=== PATIENT | female | born 1990 | race Caucasian/White ===

== ENCOUNTER 2023-08-11 07:29 | Emergency (ER) | payer OTHER ==
[~2023-08-11] VITALS: Ht 167.6 cm; Wt 56.7 kg
[2023-08-11 07:44] VITALS: BP 142/94; PULSE 75; RESP 16; O2SAT 99
[2023-08-11 08:09] VITALS: TEMP 98.6
[2023-08-11] MEDS ORDERED: ACETAMINOPHEN 325MG TABLET PO STA (08:09)
[2023-08-11] MEDS ORDERED: ONDANSETRON HCL 4MG TABLET PO ONE (08:15)
[2023-08-11 10:08] LABS: CLARITY URINE CLOUDY (CLEAR); COLOR URINE ORANGE (YELLOW); GLUCOSE URINE NEGATIVE (NEGATIVE); KETONES URINE 1+ (NEGATIVE); LEUKOCYTE ESTERASE URINE TRACE (NEGATIVE); NITRITE URINE NEGATIVE (NEGATIVE); OCCULT BLOOD URINE 3+ (NEGATIVE); PROTEIN URINE 1+ (NEGATIVE); SPECIFIC GRAVITY URINE 1.006 (1.005-1.030); UROBILINOGEN URINE 0.2 E.U./dL (0.2-1.0)
[2023-08-11 10:23] LABS: BACTERIA URINE 1+; SQUAMOUS EPITHELIAL CELL URINE 1+ /lpf (RARE/1+); YEAST URINE NONE SEEN
[2023-08-11] MEDS ORDERED: CEPH500T PO (11:15)
[2023-08-11] MEDS ORDERED: TOPUD PO (11:15)
== END 2023-08-11 11:34 | disposition home or self-care (01) ==
LOC: ER 08:19
DX: B34.9 Viral infection, unspecified (principal); N39.0 Urinary tract infection, site not specified; Z20.822 Contact with and (suspected) exposure to COVID-19
CPT/HCPCS: 81003; 81025; 71045; 99284; 87426; Q0162; C9803; Z7610 ×3